=== PATIENT | male | born 1980 ===

== ENCOUNTER → 2016-09-22 | Outpatient (REF) | payer OTHER ==
[2016-09-22 11:11] LABS: % NORMAL FORMS 5 % (>=4); IMMOTILITY 66 %; NON PROGRESSIVE MOTILITY (c) 7 %; PROGRESSIVE MOTILITY (a) 27 % (>=32); SPERM# 507.5 M/Ejac (33-46); TOTAL FUNCTIONAL 16.9 M/Ejac.; TOTAL MOTILITY 34 % (>=40); TOTAL PROGRESSIVE SPERM 136.2 M/Ejac.
== END ==
LOC: M LAB REF 11:02
PROVIDERS: ATTEND General Practice
DX: N46.8 Other male infertility (principal)

== ENCOUNTER → 2016-10-13 | Outpatient (REF) | payer OTHER ==
[2016-10-13 10:45] LABS: % NORMAL FORMS 12 % (>=4); IMMOTILITY 36 %; NON PROGRESSIVE MOTILITY (c) 13 %; PROGRESSIVE MOTILITY (a) 51 % (>=32); SPERM ABNORMAL FORMS WBC'S NOTED; SPERM# 177.9 M/Ejac (>=39); TOTAL MOTILITY 64 % (>=40)
[2016-10-13 10:46] LABS: TOTAL PROGRESSIVE SPERM 90.7 M/Ejac.
== END ==
LOC: M LAB REF 10:33
PROVIDERS: ATTEND Physician Assistant
DX: N46.9 Male infertility, unspecified (principal)